=== PATIENT | female | born 1980 ===

== ENCOUNTER 2018-01-11 17:54 | Emergency (ER) | payer OTHER ==
[2018-01-11 18:54] VITALS: BP 153/107
--- NOTE | 2018-01-11 19:34 | ED ---
Throat Pain/Nasal Congestion - HPI Summary HPI Summary: 37 yr old female with the complaint of runny nose, sore throat, coughing. Onset of symptoms three days ago. Her family saw some white patches on throat and she came to get tested for strep. No drooling, no SOB, no trouble swallowing. - History of Current Complaint Chief Complaint: UCGeneralIllness Time Seen by Provider: 01/11/18 19:16 - Allergies/Home Medications Allergies/Adverse Reactions: Allergies Allergy/AdvReac Type Severity Reaction Status Date / Time No Known Allergies Allergy Verified 01/11/18 18:45 Home Medications: Home Medications Eucalyptus/Menthol [Pozo Cough Drops] 1 [place] DAILY PRN 01/11/18 [History Confirmed 01/11/18] Metoprolol Tartrate [Lopressor] 50 mg PO BEDTIME 01/11/18 [History Confirmed ] PMH/Surg Hx/FS Hx/Imm Hx Cardiovascular History: Reports: Hx Hypertension Infectious Disease History: No Infectious Disease History: Denies: Traveled Outside the [place] in Last 30 Days - Family History Known Family History: Positive: None - Social History Occupation: Employed Full-time Alcohol Use: Occasionally Substance Use Type: Reports: None Smoking Status (MU): Current Every Day Smoker Type: Cigarettes Amount Used/How Often: 1/2 ppd Length of Time of Smoking/Using Tobacco: 22 yrs Review of Systems Positive: Fatigue Positive: Sore Throat, Nasal Discharge Positive: Cough All Other Systems Reviewed And Are Negative: Yes Physical Exam Triage Information Reviewed: Yes Vital Signs On Initial Exam: Initial Vitals Temp Pulse Resp BP Pulse Ox 99.3 F 83 16 153/107 100 01/11/18 18:47 01/11/18 18:47 01/11/18 18:47 01/11/18 18:47 01/11/18 18:47 Vital Signs Reviewed: Yes Appearance: Positive: Well-Appearing, No Pain Distress Skin: Positive: Warm, Skin Color Reflects Adequate Perfusion Head/Face: Positive: Normal Head/Face Inspection Eyes: Positive: EOMI ENT: Positive: Pharyngeal erythema, TMs normal Neck: Positive: Nontender Respiratory/Lung Sounds: Positive: Clear to Auscultation, Breath Sounds Present Cardiovascular: Positive: RRR. Negative: Murmur Abdomen Description: Positive: Nontender Diagnostics - Vital Signs Vital Signs Temp Pulse Resp BP Pulse Ox 01/11/18 18:47 99.3 F 83 16 153/107 100 - Laboratory Lab Results: Lab Results 01/11/18 Range/Units 19:00 Group A Strep Rapid Negative (Negative) Lab Statement: Any lab studies that have been ordered have been reviewed, and results considered in the medical decision making process. EENT Course/Dx - Course Course Of Treatment: 37 yr old female with upper respiratory infection. - Diagnoses Provider Diagnoses: Upper respiratory infection, Hypertension Discharge - Sign-Out/Discharge Documenting (check all that apply): Patient Departure All imaging exams completed and their final reports reviewed: No Studies - Discharge Plan Condition: Good Disposition: HOME Patient Education Materials: Upper Respiratory Infection (ED), Hypertension (ED ) Referrals: Pattie Cerda MD [Primary Care Provider] - 2 Days - Billing Disposition and Condition Condition: GOOD Disposition: Home
== END 2018-01-11 19:41 | disposition home or self-care (01) ==
LOC: UCCORT 17:54
DX: J06.9 Acute upper respiratory infection, unspecified (principal); I10 Essential (primary) hypertension; F17.210 Nicotine dependence, cigarettes, uncomplicated
CPT/HCPCS: 87651; 99211; G0463